=== PATIENT | female | born 1960 | race Two or more races ===

== ENCOUNTER 2017-08-03 14:51 | Outpatient (CLI) | payer OTHER ==
[~2017-08-03 14:51] MED LIST: CYMBALTA60 MG PO; NEURONTIN300 MG PO; SINGULAIR 10MG10 MG PO; SKELAXIN800 MG PO; SULINDAC200 MG PO; SYNTHROID50 MCG PO; VITAMIN D5000 UNIT PO
== END 2017-08-03 15:00 | disposition home or self-care (01) ==
LOC: NUCLEAR 14:51
DX: M85.88 Other specified disorders of bone density and structure, other site (principal); M81.0 Age-related osteoporosis without current pathological fracture

== ENCOUNTER 2019-04-10 13:47 | Outpatient (CLI) | payer OTHER | END 2019-04-10 14:19 | disposition home or self-care (01) | LOC: RAD 13:47 | DX: M25.511 Pain in right shoulder (principal); Z96.652 Presence of left artificial knee joint; M17.11 Unilateral primary osteoarthritis, right knee ==

== ENCOUNTER 2019-04-17 07:37 | Outpatient (CLI) | payer OTHER | END 2019-04-17 07:51 | disposition home or self-care (01) | LOC: NUCLEAR 07:37 | DX: M79.604 Pain in right leg (principal); I87.2 Venous insufficiency (chronic) (peripheral) ==

== ENCOUNTER 2019-08-27 10:48 | Outpatient (CLI) | payer OTHER | END 2019-08-27 11:16 | disposition home or self-care (01) | LOC: NUCLEAR 10:48 | PROVIDERS: ATTEND Orthopaedic Surgery | DX: M81.0 Age-related osteoporosis without current pathological fracture (principal); I87.2 Venous insufficiency (chronic) (peripheral); I73.89 Other specified peripheral vascular diseases ==

== ENCOUNTER 2019-09-09 14:14 | Outpatient (CLI) | payer OTHER | END 2019-09-09 14:21 | disposition home or self-care (01) | LOC: LAB 14:14 | PROVIDERS: ATTEND Orthopaedic Surgery | DX: M85.88 Other specified disorders of bone density and structure, other site (principal); E21.2 Other hyperparathyroidism; E88.89 Other specified metabolic disorders; M81.8 Other osteoporosis without current pathological fracture; E56.1 Deficiency of vitamin K; E55.9 Vitamin D deficiency, unspecified ==

== ENCOUNTER → 2021-01-06 | Outpatient (CLI) | payer OTHER | END | disposition home or self-care (01) | LOC: RAD 14:17 | PROVIDERS: ATTEND Orthopaedic Surgery | DX: M17.11 Unilateral primary osteoarthritis, right knee (principal); M25.561 Pain in right knee; M25.562 Pain in left knee ==

== ENCOUNTER 2021-07-06 14:58 | Outpatient (CLI) | payer OTHER | END 2021-07-06 15:00 | disposition home or self-care (01) | LOC: RAD 14:58 | PROVIDERS: ATTEND Orthopaedic Surgery | DX: M25.511 Pain in right shoulder (principal) ==

== ENCOUNTER 2021-11-23 14:02 | Outpatient (CLI) | payer OTHER | END 2021-11-23 14:09 | disposition home or self-care (01) | LOC: RAD 14:02 | PROVIDERS: ATTEND Orthopaedic Surgery | DX: M25.561 Pain in right knee (principal) ==

== ENCOUNTER 2022-10-18 08:24 | Outpatient (CLI) | payer OTHER | END 2022-10-18 08:29 | disposition home or self-care (01) | LOC: RAD 08:24 | PROVIDERS: ATTEND Orthopaedic Surgery | DX: M25.561 Pain in right knee (principal); M25.562 Pain in left knee ==

== ENCOUNTER 2023-03-15 14:47 | Outpatient (CLI) | payer OTHER | END 2023-03-15 15:15 | disposition home or self-care (01) | LOC: RAD 14:47 | PROVIDERS: ATTEND Orthopaedic Surgery | DX: M25.561 Pain in right knee (principal); M25.562 Pain in left knee; M25.571 Pain in right ankle and joints of right foot; M25.572 Pain in left ankle and joints of left foot ==

== ENCOUNTER 2023-05-30 08:32 | Outpatient (CLI) | payer OTHER ==
[2023-05-30 09:47] LABS: URINE APPEARANCE Clear; URINE BILIRRUBIN Negative (NEGATIVE); URINE BLOOD Negative; URINE COLOR Yellow; URINE GLUCOSE Negative (NEGATIVE); URINE LEUKOCYTE Negative; URINE NITRATE Negative; URINE PROTEIN Negative (NEGATIVE); URINE UROBILINOGEN 0.2 E.U./dl
[2023-05-30 09:51] LABS: URINE BACTERIA 65.5 uL (0.0-1933); URINE EPITHELIAL CELLS 2.4 uL (0.0-38.8); URINE RBC 6.8 uL (0.0-20.8)
[2023-05-30 10:13] LABS: HEMOGLOBIN 13.1 g/dL (12.0-15.00); MEAN CELL VOLUME 86.3 fL (80.00-100.00); MEAN CORPUSCULAR HGB CONC 33.6 g/dl (32.0-36.0); PLATELET COUNT 251 K/uL (150-450); RED BLOOD COUNT 4.52 M/uL (4.00-6.00); RED CELL DISTRIBUTION WIDTH 14.3 % (11.5-14.5)
[2023-05-30 10:18] LABS: URINE WBC 0.6 uL (0.0-23.2)
[2023-05-30 10:19] LABS: INR 0.99; PARTIAL THROMBOPLASTIN TIME 31.3 SECONDS (22.0-34.0); PROTHROMBIN TIME 10.4 SECONDS (9.0-11.5)
[2023-05-30 10:33] LABS: ALBUMIN 3.7 gm/dL (3.4-5.0); BILIRUBIN TOTAL 0.33 mg/dL (0.3-1.2); CREATININE SERUM 0.71 mg/dL (0.55-1.02); GFR 83.41; GLOBULINA 3.3 G/DL (2.4-3.5); POTASSIUM 4.36 mEq/L (3.5-5.1)
[2023-05-30 10:40] LABS: COL EPI 105 SECONDS (82-175)
[2023-05-30 10:58] LABS: CALCIUM 9.1 mg/dL (8.5-10.1)
== END 2023-05-30 09:01 | disposition home or self-care (01) ==
LOC: LAB 08:32
PROVIDERS: ATTEND Orthopaedic Surgery
DX: D68.8 Other specified coagulation defects (principal); D64.9 Anemia, unspecified; E88.89 Other specified metabolic disorders; N39.0 Urinary tract infection, site not specified; Z22.322 Carrier or suspected carrier of Methicillin resistant Staphylococcus aureus; E11.9 Type 2 diabetes mellitus without complications; I10 Essential (primary) hypertension; Z76.89 Persons encountering health services in other specified circumstances

== ENCOUNTER 2024-02-25 08:52 | Outpatient (CLI) | payer OTHER ==
[~2024-02-25 08:52] MED LIST changes: +ALTACE1.25 MG; +CYMBALTA20 MG; +GLUMETZA500 MG; +NEURONTIN300 MG; +SINGULAIR5 MG; +TIROSINT13 MCG
[2024-02-25 10:06] LABS: HEMATOCRIT 40.9 % (36.0-45.00); HEMOGLOBIN 13.4 g/dL (12.0-15.00); MEAN CELL VOLUME 87.5 fL (80.00-100.00); MEAN CORPUSCULAR HEMOGLOBIN 28.8 pg (27.00-32.0); MEAN CORPUSCULAR HGB CONC 32.9 g/dl (32.0-36.0); PLATELET COUNT 306 K/uL (150-450); RED BLOOD COUNT 4.67 M/uL (4.00-6.00); RED CELL DISTRIBUTION WIDTH 14.1 % (11.5-14.5)
[2024-02-25 10:36] LABS: INR 1.01
[2024-02-25 11:02] LABS: PH,URINE 5.5 (5.0-8.0); URINE APPEARANCE Clear; URINE BILIRRUBIN Negative (NEGATIVE); URINE BLOOD Negative; URINE COLOR Yellow; URINE KETONE Negative (NEGATIVE); URINE LEUKOCYTE Negative; URINE NITRATE Negative; URINE PROTEIN Negative (NEGATIVE); URINE UROBILINOGEN 0.2 E.U./dl
[2024-02-25 11:07] LABS: URINE BACTERIA 418.5 uL (0.0-1933); URINE EPITHELIAL CELLS 21.2 uL (0.0-38.8); URINE RBC 4.4 uL (0.0-20.8); URINE WBC 7.2 uL (0.0-23.2)
[2024-02-25 11:07] LABS: COL EPI 58 SECONDS (82-175)
[2024-02-25 11:11] LABS: ALBUMIN 3.9 gm/dL (3.4-5.0); BILIRUBIN TOTAL 0.63 mg/dL (0.3-1.2); CALCIUM 9.2 mg/dL (8.5-10.1); CREATININE SERUM 0.86 mg/dL (0.55-1.02); GFR 66.64; GLOBULINA 2.9 G/DL (2.4-3.5); POTASSIUM 4.25 mEq/L (3.5-5.1); TOTAL PROTEIN 6.8 gm/dL (6.4-8.2)
[2024-02-25 11:17] LABS: URINE GLUCOSE >=1000 MG/DL (NEGATIVE)
== END 2024-02-25 08:58 | disposition home or self-care (01) ==
LOC: RAD 08:52
PROVIDERS: ATTEND Orthopaedic Surgery
DX: D64.9 Anemia, unspecified (principal); E88.89 Other specified metabolic disorders; D68.8 Other specified coagulation defects; N39.0 Urinary tract infection, site not specified; Z22.322 Carrier or suspected carrier of Methicillin resistant Staphylococcus aureus; E11.9 Type 2 diabetes mellitus without complications; Z76.89 Persons encountering health services in other specified circumstances; I10 Essential (primary) hypertension

== ENCOUNTER 2024-02-28 10:19 | Inpatient (IN) | payer OTHER ==
[~2024-02-28] VITALS: Ht 167.6 cm; Wt 102.1 kg
[2024-02-28] MEDS ORDERED: SYNJARDY 12.5-1 EAC1 PO (10:21)
[2024-02-28 10:22] VITALS: BP 111/74
[2024-02-28] MEDS ORDERED: PLAQUENIL (10:22)
[2024-03-11] MEDS ORDERED: CEFAZOLIN SODIUM 1,000 MG VIAL ONE (06:58)
[2024-03-11] MEDS ORDERED: TRANEXAMIC ACID 100MG/1ML (1000MG) AMPUL IV ONE (07:16)
[2024-03-11] MEDS ORDERED: ISOPROPYL ALCOHOL 30 ML OUNCE TOP ONE (07:52)
[2024-03-11] MEDS ORDERED: LIDOCAINE HCL 1%/EPINEPHRINE 20ML VIAL IJ ONE (07:52)
[2024-03-11] MEDS ORDERED: BUPIVACAINE HCL/MPF 0.5% 30ML VIAL ONE ×2 (07:52→10:46)
[2024-03-11] MEDS ORDERED: KETOROLAC TROMETHAMINE 60 MG VIAL IM ONE (07:52)
[2024-03-11] MEDS ORDERED: EPINEPHRINE HCL/PF 1 MG/ML AMPUL ONE (09:08)
[2024-03-11] MEDS ORDERED: VANCOMYCIN HCL 1,000 MG VIAL ONE (09:09)
[2024-03-11] MEDS ORDERED: POLYMYXIN B SULFATE 500,000 U VIAL ONE (09:12)
[2024-03-11] MEDS ORDERED: PANTOPRAZOLE SODIUM 40 MG TABLET.DR PO SCH (12:09)
[2024-03-11] MEDS ORDERED: ONDANSETRON 4 MG TAB.RAPDIS PO PRN (12:15)
[2024-03-11] MEDS ORDERED: SODIUM CHLORIDE 0.45 % 1,000 ML IV SCH (12:15)
[2024-03-11] MEDS ORDERED: MEPERIDINE HCL/PF 50 MG/ML VIAL IM PRN (12:15)
[2024-03-11] MEDS ORDERED: ONDANSETRON HCL 2 MG/ML VIAL IV PRN (12:15)
[2024-03-11] MEDS ORDERED: MORPHINE SULFATE 4 MG/ML VIAL IV ONE (12:15)
[2024-03-11] MEDS ORDERED: PROMETHAZINE HCL 50 MG/ML AMPUL IM PRN (12:15)
[2024-03-11] MEDS ORDERED: TRAMADOL HCL 50 MG TABLET PO PRN (12:15)
[2024-03-11] MEDS ORDERED: KETOROLAC TROMETHAMINE 10 MG TABLET PO SCH (13:00)
[2024-03-11] MEDS ORDERED: ACETAMINOPHEN 325 MG TABLET PO SCH (13:00)
[2024-03-11 13:14] VITALS: BP 111/74
[2024-03-11] MEDS ORDERED: ENALAPRILAT DIHYDRATE 1.25 MG/ML VIAL IV PRN (15:30)
[2024-03-11 16:42] VITALS: BP 99/62
[2024-03-11] MEDS ORDERED: CEFAZOLIN SODIUM 1,000 MG VIAL IV SCH (17:00)
[2024-03-11] MEDS ORDERED: CELECOXIB 200 MG CAPSULE PO SCH (17:00)
[2024-03-11 20:53] VITALS: BP 100/65
[2024-03-12 00:36] VITALS: BP 99/64
[2024-03-12 07:05] LABS: HEMATOCRIT 34.1 % (36.0-45.00); HEMOGLOBIN 11.6 g/dL (12.0-15.00); MEAN CELL VOLUME 86.9 fL (80.00-100.00); MEAN CORPUSCULAR HEMOGLOBIN 29.5 pg (27.00-32.0); PLATELET COUNT 211 K/uL (150-450); RED BLOOD COUNT 3.93 M/uL (4.00-6.00); RED CELL DISTRIBUTION WIDTH 13.7 % (11.5-14.5)
[2024-03-12 07:54] VITALS: BP 121/69
[2024-03-12] MEDS ORDERED: RIVAROXABAN 10 MG TAB PO SCH (09:00)
[2024-03-12] MEDS ORDERED: MONTELUKAST SODIUM 5 MG TABLET PO SCH (09:00)
[2024-03-12] MEDS ORDERED: RAMIPRIL 2.5 MG CAPSULE PO SCH (09:00)
[2024-03-12] MEDS ORDERED: TRANEXAMIC ACID 100MG/1ML (1000MG) AMPUL IV NR (11:30)
[2024-03-12 15:56] VITALS: BP 118/75
[2024-03-12] MEDS ORDERED: Cyanocobalamin/Mecobalamin 1 TAB.SL SL SCH (17:00)
[2024-03-12] MEDS ORDERED: SOD FERRIC GLUC COMPLX/SUCROSE 62.5 MG in 0.9 % SODIUM CHLORIDE 50 ML IV SCH (17:00)
[2024-03-12] MEDS ORDERED: FOLIC ACID 1 MG TABLET PO SCH (17:00)
[2024-03-12 18:18] LABS: HEMOGLOBIN 10.8 g/dL (12.0-15.00); MEAN CELL VOLUME 88.5 fL (80.00-100.00); MEAN CORPUSCULAR HEMOGLOBIN 29.1 pg (27.00-32.0); MEAN CORPUSCULAR HGB CONC 32.9 g/dl (32.0-36.0); PLATELET COUNT 199 K/uL (150-450); RED BLOOD COUNT 3.73 M/uL (4.00-6.00); RED CELL DISTRIBUTION WIDTH 13.7 % (11.5-14.5)
[2024-03-13] VITALS: BP 141/77
[2024-03-13 07:04] LABS: HEMATOCRIT 29.8 % (36.0-45.00); HEMOGLOBIN 10.1 g/dL (12.0-15.00); MEAN CELL VOLUME 86.8 fL (80.00-100.00); MEAN CORPUSCULAR HEMOGLOBIN 29.4 pg (27.00-32.0); MEAN CORPUSCULAR HGB CONC 33.8 g/dl (32.0-36.0); PLATELET COUNT 195 K/uL (150-450); RED BLOOD COUNT 3.43 M/uL (4.00-6.00); RED CELL DISTRIBUTION WIDTH 13.9 % (11.5-14.5)
[2024-03-13] MEDS ORDERED: SENNA/DOCUSATE SODIUM 1 TAB TABLET PO SCH (09:00)
[2024-03-13 09:01] VITALS: BP 113/70
[2024-03-13 15:00] VITALS: BP 114/76
== END 2024-03-13 15:22 | disposition home or self-care (01) | DRG 470 ==
LOC: O/R 03-11 04:55 → SURH 03-11 07:00 → EDSTATUS 03-11 07:55 → SURH 03-11 07:56 → OB/GYN 03-11 13:13 → CIR.AMB 03-11 14:33 → OB/GYN 03-13 15:22
PROVIDERS: ADMIT Orthopaedic Surgery; ATTEND Orthopaedic Surgery
PROC: 0QUD07Z Supplement Right Patella with Autologous Tissue Substitute, Open Approach (ICD-10-PCS; 2024-03-11)
PROC: 0SRC0J9 Replacement of Right Knee Joint with Synthetic Substitute, Cemented, Open Approach (ICD-10-PCS; principal; 2024-03-11 07:00)
DX: M17.11 Unilateral primary osteoarthritis, right knee (principal); M85.661 Other cyst of bone, right lower leg; D64.89 Other specified anemias; E03.9 Hypothyroidism, unspecified; E11.9 Type 2 diabetes mellitus without complications

== ENCOUNTER 2024-04-17 11:00 | Outpatient (CLI) | payer OTHER ==
[~2024-04-17 11:00] MED LIST changes: +PLAQUENIL; +SYNJARDY 12.5-1 EAC1 PO
== END 2024-04-17 11:04 | disposition home or self-care (01) ==
LOC: RAD 11:00
PROVIDERS: ATTEND Orthopaedic Surgery
DX: M25.571 Pain in right ankle and joints of right foot (principal)

== ENCOUNTER 2024-10-20 12:52 | Outpatient (CLI) | payer OTHER | END 2024-10-20 12:53 | disposition home or self-care (01) | LOC: RAD 12:52 | PROVIDERS: ATTEND Orthopaedic Surgery | DX: M25.561 Pain in right knee (principal) ==